=== PATIENT | female | born 1965 | race Caucasian/White ===

== ENCOUNTER 2019-06-24 21:06 | Emergency (ER) | payer MEDICAID ==
--- NOTE | 2019-06-24 21:23 | EDM.PDOC ---
ED HPI GENERAL MEDICAL PROBLEM - General Chief Complaint: Chest Pain Stated Complaint: CHEST PAIN,TROUBLE BREATHING Time Seen by Provider: 06/24/19 21:13 Source of Information: Reports: Patient History Limitations: Reports: No Limitations - History of Present Illness INITIAL COMMENTS - FREE TEXT/NARRATIVE: HISTORY OF PRESENT ILLNESS: Patient is a 53-year-old female who presents with sharp stabbing brief intermittent chest pain right-sided overlying right breast since today lasting ~1sec each episode. 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 She is a smoker and states that she has recently increased smoking due to state home orders. She denies any leg pain, unilateral leg swelling, recent travel or history of PE. No fevers chills or recent cough. Denies any rash. Denies any family history of coronary artery disease. No syncope. No abdominal pain or dyspnea. REVIEW OF SYSTEMS: Other than the symptoms associated with the present events, the following is reported with regard to recent health: General: (-) fever. HENT: (-) congestion. Respiratory: (-) cough. Cardiovascular: (+) chest pain. GI: (-) abdominal pain. : (-) urinary complaints. Musculoskeletal: (-) other aches or pains. Endocrine: (-) generalized weakness. Neurological: (-) localized weakness. Skin: (-) rash PAST MEDICAL HISTORY: reviewed as per nursing notes SOCIAL HISTORY: reviewed as per nursing notes, MEDICATIONS: Per nurse's note ALLERGIES: Per nurse's note, reviewed by me PHYSICAL EXAMINATION: GENERALIZED APPEARANCE: well developed, well nourished in no distress VITAL SIGNS: Per nurse's note, reviewed by me SKIN: Warm, dry; (-) cyanosis; (-) rash. HEAD: (-) scalp swelling, (-) tenderness. EYES: (-) conjunctival pallor, (-) scleral icterus. ENMT: (-) stridor; mucous membranes moist. NECK: (-) tenderness, (-) stiffness, CHEST AND RESPIRATORY: (-) rales, (-) rhonchi, (-) wheezes; breath sounds equal bilaterally. (-) chest or breast tenderness. no erythema. no crepitus HEART AND CARDIOVASCULAR: (-) irregularity; (-) murmur, (-) gallop. ABDOMEN AND GI: Soft; (-) tenderness, (-) guarding, (-) rebound, (-) palpable masses, EXTREMITIES: (-) deformity, (-) edema. NEURO AND PSYCH: Alert. Cranial nerves grossly intact; strength symmetric. gait steady DIAGNOSTICS: EKG: nsr at [address] elevation CXR: as read by radiologist, reviewed by myself. Labs ordered and reviewed EMERGENCY DEPARTMENT COURSE AND TREATMENT: Patient's condition remained stable during Emergency Department evaluation. Pt with low risk HEART score and negative EKG and troponin with history not concerning for ACS. Dimer wnl. No evidence of rash but warned of possibility and s/sx of HZV. Based on history, physical exam, and diagnostic evaluation, the patient appears to have symptoms consistent with low risk chest pain. The physical exam was unremarkable including normal chest and respiratory exam. Laboratory testing was performed. I do not believe the symptoms are related to acute ischemic chest pain. I also do not believe this is a vascular catastrophe such as an aortic dissection or an acute rupture of an abdominal aortic aneurysm. The patient is low risk for acute thromboembolic phenomena. The patient will be discharged to follow-up with their primary care physician in the next 24-48 hours or return here if unable to make an appointment with [facility] primary care physician. Patient was advised of our evaluation and instructed to seek medical attention immediately if symptoms change, worsen, or new symptoms develop. PLAN AND FOLLOW-UP: Patient received written and verbal instructions regarding this condition. Return to ED immediately with any new or worsening symptoms. Follow up to be arranged by patient with pcp in 1-2 days for further evaluation. Given discharge precautions. patient expressed verbal understanding. chest pain Pain Score (Numeric/FACES): 10 - Related Data Allergies Allergy/AdvReac Type Severity Reaction Status Date / Time No Known Allergies Allergy Verified 06/24/19 21:10 ED ROS GENERAL - Review of Systems Review Of Systems: See Below (see dictation) ED EXAM, GENERAL - Physical Exam Exam: See Below (see dictation) Course - Vital Signs Last Recorded V/S: Last Vital Signs Temp 98 F 06/24/19 21:10 Pulse 72 06/24/19 22:04 Resp 18 06/24/19 22:04 BP 127/66 06/24/19 22:04 Pulse Ox 96 06/24/19 22:04 - Orders/Labs/Meds Orders: Active Orders 24 hr Category Date Time Status EKG Documentation Completion [RC] STAT Care 06/24/19 21:14 Active CULTURE BLOOD [BC] Stat Lab 06/24/19 21:30 Received CULTURE BLOOD [BC] Stat Lab 06/24/19 21:49 Received Blood Culture x2 Reflex Set [OM.PC] Stat Oth 06/24/19 21:14 Ordered Labs: Laboratory Tests 06/24/19 06/24/19 06/24/19 Range/Units 21:30 21:30 21:30 WBC 7.49 (4.0-11.0) K/uL RBC 4.35 (4.30-5.90) M/uL Hgb 13.7 (12.0-16.0) g/dL Hct 41.3 (36.0-46.0) % MCV 94.9 (80.0-98.0) fL MCH 31.5 (27.0-32.0) pg MCHC 33.2 (31.0-37.0) g/dL RDW Std Deviation 48.8 (28.0-62.0) fl RDW Coeff of Gela 14 (11.0-15.0) % Plt Count 233 (150-400) K/uL MPV 11.80 (7.40-12.00) fL Neut % (Auto) 47.8 L (48.0-80.0) % Lymph % (Auto) 41.7 H (16.0-40.0) % [place] % (Auto) 7.9 (0.0-15.0) % Eos % (Auto) 2.1 (0.0-7.0) % Baso % (Auto) 0.5 (0.0-1.5) % Neut # (Auto) 3.6 (1.4-5.7) K/uL Lymph # (Auto) 3.1 H (0.6-2.4) K/uL [place] # (Auto) 0.6 (0.0-0.8) K/uL Eos # (Auto) 0.2 (0.0-0.7) K/uL Baso # (Auto) 0.0 (0.0-0.1) K/uL Nucleated RBC % 0.0 /100WBC Nucleated RBCs # 0 K/uL D-Dimer, Quantitative < 0.19 (0.0-0.50) mg/L FEU Lactate 0.8 (0.20-2.00) mmol/L Sodium (136-145) mmol/L Potassium (3.5-5.1) mmol/L Chloride (98-107) mmol/L Carbon Dioxide (21.0-32.0) mmol/L BUN (7.0-18.0) mg/dL Creatinine (0.6-1.0) mg/dL Est Cr Clr Drug Dosing mL/min Estimated GFR (MDRD) ml/min Glucose (74-106) mg/dL Calcium (8.5-10.1) mg/dL Troponin I (0.000-0.056) ng/mL B-Natriuretic Peptide (<100) PG/ML Lipase (73-393) U/L 06/24/19 06/24/19 06/24/19 Range/Units 21:30 21:30 21:30 WBC (4.0-11.0) K/uL RBC (4.30-5.90) M/uL Hgb (12.0-16.0) g/dL Hct (36.0-46.0) % MCV (80.0-98.0) fL MCH (27.0-32.0) pg MCHC (31.0-37.0) g/dL RDW Std Deviation (28.0-62.0) fl RDW Coeff of Gela (11.0-15.0) % Plt Count (150-400) K/uL MPV (7.40-12.00) fL Neut % (Auto) (48.0-80.0) % Lymph % (Auto) (16.0-40.0) % [place] % (Auto) (0.0-15.0) % Eos % (Auto) (0.0-7.0) % Baso % (Auto) (0.0-1.5) % Neut # (Auto) (1.4-5.7) K/uL Lymph # (Auto) (0.6-2.4) K/uL [place] # (Auto) (0.0-0.8) K/uL Eos # (Auto) (0.0-0.7) K/uL Baso # (Auto) (0.0-0.1) K/uL Nucleated RBC % /100WBC Nucleated RBCs # K/uL D-Dimer, Quantitative (0.0-0.50) mg/L FEU Lactate (0.20-2.00) mmol/L Sodium 139 (136-145) mmol/L Potassium 3.9 (3.5-5.1) mmol/L Chloride 103 (98-107) mmol/L Carbon Dioxide 25.8 (21.0-32.0) mmol/L BUN 19 H (7.0-18.0) mg/dL Creatinine 0.7 (0.6-1.0) mg/dL Est Cr Clr Drug Dosing 67.53 mL/min Estimated GFR (MDRD) > 60.0 ml/min Glucose 97 (74-106) mg/dL Calcium 9.2 (8.5-10.1) mg/dL Troponin I < 0.050 (0.000-0.056) ng/mL B-Natriuretic Peptide 11 (<100) PG/ML Lipase 76 (73-393) U/L Meds: Medications Discontinued Medications Generic Name Dose Route Start Last Admin Trade Name Freq PRN Reason Stop Dose Admin Oxycodone/Acetaminophen 1 tab 06/24/19 22:29 06/24/19 22:41 Percocet 325-5 Mg PO 06/24/19 22:30 1 tab ONETIME ONE Administration Departure - Departure Time of Disposition: 22:30 Disposition: Home, Self-Care 01 Condition: Good Clinical Impression: Chest wall pain - Discharge Information *PRESCRIPTION DRUG MONITORING PROGRAM REVIEWED*: Not Applicable *COPY OF PRESCRIPTION DRUG MONITORING REPORT IN PATIENT SAM: Not Applicable Instructions: Nonspecific Chest Pain, Adult Referrals: Sandi Tavares [Ordering Only Provider] - 1 Day Forms: ED Department Discharge Additional Instructions: The following information is given to patients seen in the emergency department who are being discharged to home. This information is to outline your options for follow-up care. We provide all patients seen in our emergency department with a follow-up referral. The need for follow-up, as well as the timing and circumstances, are variable depending upon the specifics of your emergency department visit. If you don't have a primary care physician on staff, we will provide you with a referral. We always advise you to contact your personal physician following an emergency department visit to inform them of the circumstance of the visit and for follow-up with them and/or the need for any referrals to a consulting specialist. The emergency department will also refer you to a specialist when appropriate. This referral assures that you have the opportunity for follow-up care with a specialist. All of these measure are taken in an effort to provide you with optimal care, which includes your follow-up. Under all circumstances we always encourage you to contact your private physician who remains a resource for coordinating your care. When calling for follow-up care, please make the office aware that this follow-up is from your recent emergency room visit. If for any reason you are refused follow-up, please contact the [facility] Emergency Department at and asked to speak to the emergency department charge nurse. Sepsis Event Note - Evaluation Sepsis Screening Result: No Definite Risk - Focused Exam Vital Signs: Vital Signs Temp Pulse Resp BP Pulse Ox 06/24/19 22:04 72 18 127/66 96 06/24/19 21:10 98 F 77 18 159/114 H 98 Date Exam was Performed: 06/25/19 Time Exam was Performed: 01:20 - My Orders Last 24 Hours: My Active Orders 06/24/19 21:14 EKG Documentation Completion [RC] STAT Blood Culture x2 Reflex Set [OM.PC] Stat 06/24/19 21:30 CULTURE BLOOD [BC] Stat 06/24/19 21:49 CULTURE BLOOD [BC] Stat - Assessment/Plan Last 24 Hours: My Active Orders 06/24/19 21:14 EKG Documentation Completion [RC] STAT Blood Culture x2 Reflex Set [OM.PC] Stat 06/24/19 21:30 CULTURE BLOOD [BC] Stat 06/24/19 21:49 CULTURE BLOOD [BC] Stat
--- NOTE | 2019-06-24 21:50 | CR ---
Chest: Portable view of the chest was obtained. Comparison: No previous study is available. Heart size and mediastinum are normal. Electro-stimulating leads are seen within the lower thoracic spine. Lungs show no acute parenchymal change. Bony structures are grossly intact. Impression: 1. Findings as noted above. 2. Nothing acute is appreciated on portable chest x-ray. Diagnostic code #2 Study was dictated in MDT
[2019-06-24 21:56] LABS: BLOOD UREA NITROGEN,BUN 19 mg/dL (7.0-18.0); CARBON DIOXIDE,CO2 25.8 mmol/L (21.0-32.0); CHLORIDE,CL 103 mmol/L (98-107); GLUCOSE RANDOM 97 mg/dL (74-106); POTASSIUM,K 3.9 mmol/L (3.5-5.1); SODIUM,NA 139 mmol/L (136-145)
[2019-06-24] MEDS ORDERED: Acetaminophen/oxyCODONE 325-5 MG Tab PO ONE (22:29)
== END 2019-06-24 22:45 | disposition home or self-care (01) ==
LOC: MW.ED 21:06
DX: R07.89 Other chest pain (principal); F17.200 Nicotine dependence, unspecified, uncomplicated
CPT/HCPCS: 36415; 71045; 80048; 83605; 83690; 83880; 84484; 85025; 85379; 87040; 93005; 99285; A9270; 99283